=== PATIENT | female | born 1985 | race Caucasian/White ===

== ENCOUNTER 2017-10-19 14:12 | Emergency (ER) | payer OTHER, MEDICAID, SELFPAY ==
[2017-10-19 14:26] VITALS: BP 113/72; PULSE 83; RESP 16; TEMP 36.6; O2SAT 99
--- NOTE | 2017-10-19 14:31 | DI.RAD.S_ITS ---
PROCEDURE: XR HAND LT MIN 3V INDICATIONS: left thumb injury TECHNIQUE: 3 views of the hand(s) acquired. COMPARISON: [facility], CR, FINGER LT, 10/29/2013, 11:50. FINDINGS: Bones: No fractures or dislocations. Carpal bones are normally aligned. No suspicious bony lesions. Small accessory ossicle at the tip of the ulnar styloid process is unchanged. Soft tissues: No suspicious soft tissue calcifications. IMPRESSION: Negative for fracture. No arthritic changes. Dictated by: Christian Malin M.D. on 10/19/2017 at 14:54 Approved by: Christian Malin M.D. on 10/19/2017 at 14:57
[2017-10-19 15:30] VITALS: PULSE 77
--- NOTE | 2017-10-19 15:40 | ED.UPPEXIN ---
HPI - Extremity Injury (Upper) <ROSE Culver - Last Filed: 10/19/17 23:08> General Chief Complaint: Extremity Injury, Upper Stated Complaint: left thumb pain Time Seen by Provider: 10/19/17 15:40 Source: patient Mode of arrival: ambulatory Limitations: no limitations History of Present Illness HPI narrative: Patient presents with chief complaint of left thumb pain. Her dog pulled on her left thumb, causing pain and a pop. She complains of decreased range of motion, swelling and pain isolated to her thumb. She states that her thumb somewhat hyperextended. She denies wrist pain. She states that she does have a previous thumb ligament injury from being a softball catcher. She has not taken any medication by mouth, but has ice the injury. Related Data Home Medications Medication Instructions Recorded Confirmed No Known Home Medications 10/19/17 10/19/17 Allergies Allergy/AdvReac Type Severity Reaction Status Date / Time No Known Drug Allergies Allergy Verified 10/19/17 14:30 Review of Systems <ROSE Culver - Last Filed: 10/19/17 23:08> Review of Systems GENERAL: Denies chills, fatigue, malaise, fever, sweats. HEENT: Denies sinus pain, ear pain, sore throat, difficulty swallowing, dizziness. RESPIRATORY: Denies dyspnea, cough, wheezing, hemoptysis, sputum. CARDIOVASCULAR: Denies chest pain, palpitations, orthopnea, edema, GASTROINTESTINAL: Denies nausea, vomiting, abdominal pain, diarrhea, constipation, melena. : Denies dysuria, frequency, incontinence, hematuria, urinary retention. MUSCULOSKELETAL: See HPI SKIN: Denies rash, skin lesions, or other NEUROLOGIC: Denies weakness, headache, numbness, change in speech, confusion, seizures, incoordination. PSYCHIATRIC: No concerning psychosocial issues. 12 point review of systems is negative except for those stated above Exam <ROSE Culver - Last Filed: 10/19/17 23:08> Narrative Exam Narrative: GENERAL: This is a well-nourished, well-developed patient, in chair hallway HEAD: Atraumatic. Normocephalic. No temporal or scalp tenderness. EYES: Pupils equal round and reactive. Extraocular motions intact. No scleral icterus. No injection or drainage. ENT: Nose without bleeding, purulent drainage or septal hematoma. Throat without erythema, tonsillar hypertrophy or exudate. Uvula midline. Airway patent. NECK: Trachea midline. No JVD or lymphadenopathy. Supple, nontender, no meningeal signs. CARDIOVASCULAR: Regular rate and rhythm without murmurs, gallops, or rubs. RESPIRATORY: Clear to auscultation. Breath sounds equal bilaterally. No wheezes, rales, or rhonchi. GASTROINTESTINAL: Abdomen soft, non-tender, nondistended. No hepato-splenomegaly, or palpable masses. No guarding. EXTREMITIES: Pain to palpation base of left thumb. Range of motion reduced all burt. Capillary refill less than 2 sec the thumb. BACK: Nontender without deformity or crepitance. No flank tenderness. NEURO: AOx3. SKIN: No rash or erythema. No ecchymosis or erythema or wound noted left thumb. Initial Vital Signs Initial Vital Signs: Vital Signs Temperature 98 F 10/19/17 14:26 Pulse Rate 83 10/19/17 14:26 Respiratory Rate 16 10/19/17 14:26 Blood Pressure 113/72 10/19/17 14:26 Pulse Oximetry 99 10/19/17 14:26 <Wilmar Pisano DO - Last Filed: 10/20/17 07:24> Initial Vital Signs Initial Vital Signs: Vital Signs Temperature 98 F 10/19/17 14:26 Pulse Rate 83 10/19/17 14:26 Respiratory Rate 16 10/19/17 14:26 Blood Pressure 113/72 10/19/17 14:26 Pulse Oximetry 99 10/19/17 14:26 Procedures <ROSE Culver - Last Filed: 10/19/17 23:08> Orthopedic Splinting/Casting Injury #1: Upper Extremity Immobilizer: thumb spica (supportive black brace- left ) Additional Comments: PMS intact before and after application Course <ROSE Culver - Last Filed: 10/19/17 23:08> Orders Ordered: Discontinued Medications Ibuprofen (Advil) 800 mg PO NOW ONE Stop: 10/19/17 15:41 Last Admin: 10/19/17 16:41 Dose: 800 mg Vital Signs - 8 hr 10/19/17 15:30 10/19/17 16:51 Pulse Rate 81 Pulse Rate [Left Radial] 77 Respiratory Rate 16 Blood Pressure 112/77 Pulse Oximetry 100 <Wilmar Pisano DO - Last Filed: 10/20/17 07:24> Orders Ordered: Discontinued Medications Ibuprofen (Advil) 800 mg PO NOW ONE Stop: 10/19/17 15:41 Last Admin: 10/19/17 16:41 Dose: 800 mg Vital Signs - 8 hr 10/19/17 15:30 10/19/17 16:51 Pulse Rate 81 Pulse Rate [Left Radial] 77 Respiratory Rate 16 Blood Pressure 112/77 Pulse Oximetry 100 [facility] - Extremity Injury (Upper) <ROSE Culver - Last Filed: 10/19/17 23:08> Imaging Data left hand xray: Radiologist's impression: [address] [address] XRay Report Signed Patient: Rosario Silva MR#: [id number] : 1985 Acct:[id number] Age/Sex: 31 / F Date of Service: 10/19/17 Loc: ED Accession Number: [id number] Procedure: XR hand LT min 3V Ordering Provider: Pamella Oh PROCEDURE: XR HAND LT MIN 3V INDICATIONS: left thumb injury TECHNIQUE: 3 views of the hand(s) acquired. COMPARISON: [facility], ARNULFO, FINGER LT, 10/29/2013, 11:50. FINDINGS: Bones: No fractures or dislocations. Carpal bones are normally aligned. No suspicious bony lesions. Small accessory ossicle at the tip of the ulnar styloid process is unchanged. Soft tissues: No suspicious soft tissue calcifications. IMPRESSION: Negative for fracture. No arthritic changes. Dictated by: Christian Malin M.D. on 10/19/2017 at 14:54 [facility] Narrative Medical decision making narrative: Patient presents with chief complaint of left thumb pain. She had a negative x-ray. She was treated with a dose of ibuprofen as well as supportive brace in the emergency department. Given her history and decreased range of motion and concern for UCL strain. I encouraged rice, [id number] pain medication as needed and follow up with primary care provider. She does have a history of a UCL injury on that side so I did give her the contact information for [facility]. I discussed follow-up with worsening or no improvement. Patient no questions or concerns upon discharge. Discharge Plan Departure Patient Disposition: Home, Self-Care Clinical Impression: Pain of left thumb Discharge Date/Time: 10/19/17 16:53 Interventions: ED Discharge Assessment Last Done: 10/19/17 16:51 Instructions: How To Perform RICE (Rest, Ice, Compress, Elevate), How to Take Care of Your Splint, DI for Ulnar Collateral Ligament Sprain of Thumb Activity Restrictions/Additional Instructions: Your x-ray was negative for an acute fracture. However given her pain and decreased range of motion, I have placed in a splint for comfort. I suggest rest, ice, compression and elevation as well as [id number] pain medication as needed and able. I suggest following up with your primary care provider if worsening or no improvement to the symptoms. You may need further imaging or physical therapy. I also placed a referral to [facility] in case he would like to follow up with them. Prescriptions: No Action No Known Home Medications RF: 0 Referrals: [facility] [Provider Group] Aimee Marsh PA-C [Primary Care Provider] - <Wilmar Pisano DO - Last Filed: 10/20/17 07:24> Cosign ED Attending Natasha Attestation: I was available for consultation during this patient's emergency department encounter
--- NOTE | 2017-10-19 16:18 | ED_ITS ---
HPI - Extremity Injury (Upper) <ROSE Culver - Last Filed: 10/19/17 23:08> General Chief Complaint: Extremity Injury, Upper Stated Complaint: left thumb pain Time Seen by Provider: 10/19/17 15:40 Source: patient Mode of arrival: ambulatory Limitations: no limitations History of Present Illness HPI narrative: Patient presents with chief complaint of left thumb pain. Her dog pulled on her left thumb, causing pain and a pop. She complains of decreased range of motion, swelling and pain isolated to her thumb. She states that her thumb somewhat hyperextended. She denies wrist pain. She states that she does have a previous thumb ligament injury from being a softball catcher. She has not taken any medication by mouth, but has ice the injury. Related Data Home Medications Medication Instructions Recorded Confirmed No Known Home Medications 10/19/17 10/19/17 Allergies Allergy/AdvReac Type Severity Reaction Status Date / Time No Known Drug Allergies Allergy Verified 10/19/17 14:30 Review of Systems <ROSE Culver - Last Filed: 10/19/17 23:08> Review of Systems GENERAL: Denies chills, fatigue, malaise, fever, sweats. HEENT: Denies sinus pain, ear pain, sore throat, difficulty swallowing, dizziness. RESPIRATORY: Denies dyspnea, cough, wheezing, hemoptysis, sputum. CARDIOVASCULAR: Denies chest pain, palpitations, orthopnea, edema, GASTROINTESTINAL: Denies nausea, vomiting, abdominal pain, diarrhea, constipation, melena. : Denies dysuria, frequency, incontinence, hematuria, urinary retention. MUSCULOSKELETAL: See HPI SKIN: Denies rash, skin lesions, or other NEUROLOGIC: Denies weakness, headache, numbness, change in speech, confusion, seizures, incoordination. PSYCHIATRIC: No concerning psychosocial issues. 12 point review of systems is negative except for those stated above Exam <ROSE Culver - Last Filed: 10/19/17 23:08> Narrative Exam Narrative: GENERAL: This is a well-nourished, well-developed patient, in chair hallway HEAD: Atraumatic. Normocephalic. No temporal or scalp tenderness. EYES: Pupils equal round and reactive. Extraocular motions intact. No scleral icterus. No injection or drainage. ENT: Nose without bleeding, purulent drainage or septal hematoma. Throat without erythema, tonsillar hypertrophy or exudate. Uvula midline. Airway patent. NECK: Trachea midline. No JVD or lymphadenopathy. Supple, nontender, no meningeal signs. CARDIOVASCULAR: Regular rate and rhythm without murmurs, gallops, or rubs. RESPIRATORY: Clear to auscultation. Breath sounds equal bilaterally. No wheezes , rales, or rhonchi. GASTROINTESTINAL: Abdomen soft, non-tender, nondistended. No hepato-splenomegaly , or palpable masses. No guarding. EXTREMITIES: Pain to palpation base of left thumb. Range of motion reduced all burt. Capillary refill less than 2 sec the thumb. BACK: Nontender without deformity or crepitance. No flank tenderness. NEURO: AOx3. SKIN: No rash or erythema. No ecchymosis or erythema or wound noted left thumb. Initial Vital Signs Initial Vital Signs: Vital Signs Temperature 98 F 10/19/17 14:26 Pulse Rate 83 10/19/17 14:26 Respiratory Rate 16 10/19/17 14:26 Blood Pressure 113/72 10/19/17 14:26 Pulse Oximetry 99 10/19/17 14:26 <Wilmar Pisano DO - Last Filed: 10/20/17 07:24> Initial Vital Signs Initial Vital Signs: Vital Signs Temperature 98 F 10/19/17 14:26 Pulse Rate 83 10/19/17 14:26 Respiratory Rate 16 10/19/17 14:26 Blood Pressure 113/72 10/19/17 14:26 Pulse Oximetry 99 10/19/17 14:26 Procedures <ROSE Culver - Last Filed: 10/19/17 23:08> Orthopedic Splinting/Casting Injury #1: Upper Extremity Immobilizer: thumb spica (supportive black brace- left ) Additional Comments: PMS intact before and after application Course <ROSE Culver - Last Filed: 10/19/17 23:08> Orders Ordered: Discontinued Medications Ibuprofen (Advil) 800 mg PO NOW ONE Stop: 10/19/17 15:41 Last Admin: 10/19/17 16:41 Dose: 800 mg Vital Signs - 8 hr 10/19/17 15:30 10/19/17 16:51 Pulse Rate 81 Pulse Rate [Left Radial] 77 Respiratory Rate 16 Blood Pressure 112/77 Pulse Oximetry 100 <Wilmar Pisano DO - Last Filed: 10/20/17 07:24> Orders Ordered: Discontinued Medications Ibuprofen (Advil) 800 mg PO NOW ONE Stop: 10/19/17 15:41 Last Admin: 10/19/17 16:41 Dose: 800 mg Vital Signs - 8 hr 10/19/17 15:30 10/19/17 16:51 Pulse Rate 81 Pulse Rate [Left Radial] 77 Respiratory Rate 16 Blood Pressure 112/77 Pulse Oximetry 100 [facility] - Extremity Injury (Upper) <ROSE Culver - Last Filed: 10/19/17 23:08> Imaging Data left hand xray: Radiologist's impression: [address] [address] XRay Report Signed Patient: Rosario Silva MR#: [id number] : 1985 Acct:[id number] Age/Sex: 31 / F Date of Service: 10/19/17 Loc: ED Accession Number: [id number] Procedure: XR hand LT min 3V Ordering Provider: Pamella Oh PROCEDURE: XR HAND LT MIN 3V INDICATIONS: left thumb injury TECHNIQUE: 3 views of the hand(s) acquired. COMPARISON: [facility], ARNULFO, FINGER LT, 10/29/2013, 11:50. FINDINGS: Bones: No fractures or dislocations. Carpal bones are normally aligned. No suspicious bony lesions. Small accessory ossicle at the tip of the ulnar styloid process is unchanged. Soft tissues: No suspicious soft tissue calcifications. IMPRESSION: Negative for fracture. No arthritic changes. Dictated by: Christian Malin M.D. on 10/19/2017 at 14:54 [facility] Narrative Medical decision making narrative: Patient presents with chief complaint of left thumb pain. She had a negative x-ray. She was treated with a dose of ibuprofen as well as supportive brace in the emergency department. Given her history and decreased range of motion and concern for UCL strain. I encouraged rice, [id number] pain medication as needed and follow up with primary care provider. She does have a history of a UCL injury on that side so I did give her the contact information for [facility]. I discussed follow-up with worsening or no improvement. Patient no questions or concerns upon discharge. Discharge Plan Departure Patient Disposition: Home, Self-Care Clinical Impression: Pain of left thumb Discharge Date/Time: 10/19/17 16:53 Interventions: ED Discharge Assessment Last Done: 10/19/17 16:51 Instructions: How To Perform RICE (Rest, Ice, Compress, Elevate), How to Take Care of Your Splint, DI for Ulnar Collateral Ligament Sprain of Thumb Activity Restrictions/Additional Instructions: Your x-ray was negative for an acute fracture. However given her pain and decreased range of motion, I have placed in a splint for comfort. I suggest rest, ice, compression and elevation as well as seje-mcb-xtozjrt pain medication as needed and able. I suggest following up with your primary care provider if worsening or no improvement to the symptoms. You may need further imaging or physical therapy. I also placed a referral to [facility] in case he would like to follow up with them. Prescriptions: No Action No Known Home Medications RF: 0 Referrals: [facility] [Provider Group] Aimee Marsh PA-C [Primary Care Provider] - <Wilmar Pisano DO - Last Filed: 10/20/17 07:24> Cosign ED Attending Natasha Attestation: I was available for consultation during this patient's emergency department encounter
[2017-10-19] MEDS: IBUPROFEN 400 MG TABLET 800 MG PO (16:41)
[2017-10-19 16:51] VITALS: BP 112/77; PULSE 81; RESP 16; O2SAT 100
== END 2017-10-19 16:53 | disposition home or self-care (01) ==
PROVIDERS: Emergency Provider Nurse Practitioner Family; Family Provider Physician Assistant; PCP Physician Assistant
DX: M79.645 Pain in left finger(s) (principal); W23.0XXA Caught, crushed, jammed, or pinched between moving objects, initial encounter
CPT/HCPCS: 29260; 73130; 99282; 99283

== ENCOUNTER → 2019-10-12 09:23 | Outpatient (CLI) | payer OTHER, MEDICAID, SELFPAY ==
[2019-10-12 10:22] LABS: Add Manual Diff / Slide Review NO; Basophils Absolute Auto 0 /uL (0-100); Basophils Percent Auto 0.7 % (0-2); Eosinophils Absolute Auto 100 /uL (0-450); Eosinophils Percent Auto 2.2 % (2-4); Hematocrit 37.1 % (36-46); Hemoglobin 12.6 g/dL (12.0-16.0); Lymphocytes Absolute Auto 1400 /uL (1100-4500); Mean Corpuscular HGB Conc 33.9 % (30-36); Mean Corpuscular Hemoglobin 29.9 PG (26-34); Mean Corpuscular Volume 88.3 fL (80-100); Monocytes Absolute Auto 500 /uL (0-900); Monocytes Percent Auto 7.6 % (3-14); Neutrophils Absolute Auto 4300 /uL (1500-7000); Neutrophils Percent Auto 67.5 % (50-75); Platelet Count 236 X10^3/uL (150-400); Red Cell Distribution Width 12.3 % (11.6-14.8); White Blood Cell Count 6.4 X10^3/uL (4.5-11.0)
[2019-10-12 10:38] LABS: Alanine Aminotransferase 51 IU/L (<35); Albumin 4.3 g/dL (3.5-5.0); Albumin Globulin Ratio 1.5 (1.0-2.8); Alkaline Phosphatase 80 U/L (38-126); Aspartate Aminotransferase 37 IU/L (14-36); BUN Creatinine Ratio 21.8 (6-22); Bilirubin Total 0.5 mg/dL (0.2-1.3); Blood Urea Nitrogen 17 mg/dL (7-17); Calcium 9.4 mg/dL (8.4-10.2); Carbon Dioxide 28 mmol/L (22-32); Chloride 104 mmol/L (98-107); Cholesterol 189 mg/dL (140-199); Estimated Glomerular Filt Rate > 60.0 mL/min (>60); Globulin 2.9 g/dL (1.7-4.1); Glucose 89 mg/dL (70-100); HDL Cholesterol 54 mg/dL (40-60); HEMOLYSIS < 15 (0-50); LDL Cholesterol Calculated 105 mg/dL (<100); Potassium 4.5 mmol/L (3.4-5.1); Sodium 139 mmol/L (137-145); Total Protein 7.2 g/dL (6.3-8.2); Triglycerides 150 mg/dL (35-150)
[2019-10-12 10:50] LABS: Free T3, Triiodothyronine Free 3.34 pg/mL (2.77-5.27); Free T4, Direct Thyroxine 1.14 ng/dL (0.78-2.19)
[2019-10-12 11:03] LABS: Thyroid Stimulating Hormone 1.17 uIU/mL (0.47-4.68)
== END ==
PROVIDERS: Family Provider Physician Assistant; PCP Nurse Practitioner; Referring Provider Nurse Practitioner; Visit Provider Nurse Practitioner
DX: Z00.00 Encounter for general adult medical examination without abnormal findings (principal); E66.01 Morbid (severe) obesity due to excess calories; F32.9 Major depressive disorder, single episode, unspecified; F41.9 Anxiety disorder, unspecified; R63.4 Abnormal weight loss
CPT/HCPCS: 36415; 80053; 80061; 83036; 84439; 84443; 84481; 85025

== ENCOUNTER → 2019-10-22 13:48 | Outpatient (CLI) | payer OTHER, MEDICAID, SELFPAY ==
--- NOTE | 2019-10-22 13:50 | DI.US.S_ITS ---
PROCEDURE: US ABDOMEN LIMITED INDICATIONS: ELEV LFTS TECHNIQUE: Real-time scanning was performed of the abdominal and retroperitoneal organs, with image documentation. COMPARISON: [facility], RG, CT THORAX W/CONTRAST, 04/25/2004, 17:34. [facility], US, ABDOMEN COMPLETE, 06/20/2013, 5:57. FINDINGS: Liver is normal in size and demonstrates diffuse increased echotexture. There is a 1.0 x 1.2 x 1.1 cm echogenic nodule in the right hepatic lobe, most likely a hepatic hemangioma. No gallstones. Gallbladder wall thickness is at the upper limits of normal. No pericholecystic fluid or sonographic Souza's sign. Intrahepatic bile ducts are non-dilated. Extrahepatic bile duct caliber is normal measuring 3 mm. Visualized portions of the pancreas are sonographically normal. Miscellaneous: No free abdominal fluid. IMPRESSION: 1. Increased hepatic echotexture may be secondary to fatty infiltration or hepatocellular disease. 2. A 1.0 x 1.2 x 1.1 cm echogenic nodule in the right hepatic lobe, most likely a hemangioma. In this patient with abnormal liver enzymes, a follow-up ultrasound is suggested in 3-6 months. Alternatively, CT raising liver protocol may be obtained. 3. Normal gallbladder and pancreas as visualized. Dictated by: Sheyla Chance M.D. on 10/22/2019 at 18:16 Approved by: Sheyla Chance M.D. on 10/22/2019 at 18:20
== END ==
PROVIDERS: Family Provider Physician Assistant; PCP Nurse Practitioner; Referring Provider Nurse Practitioner; Visit Provider Nurse Practitioner
DX: R79.89 Other specified abnormal findings of blood chemistry (principal); K76.9 Liver disease, unspecified
CPT/HCPCS: 76705

== ENCOUNTER → 2019-11-23 09:36 | Outpatient (CLI) | payer OTHER, MEDICAID, SELFPAY ==
[2019-11-23 09:47] LABS: RBC Urine None Seen (0-5/HPF)
[2019-11-23 11:02] LABS: Add Manual Diff / Slide Review NO; Basophils Absolute Auto 0 /uL (0-100); Basophils Percent Auto 0.6 % (0-2); Eosinophils Absolute Auto 100 /uL (0-450); Eosinophils Percent Auto 2.1 % (2-4); Hematocrit 37.1 % (36-46); Hemoglobin 12.7 g/dL (12.0-16.0); Lymphocytes Absolute Auto 1400 /uL (1100-4500); Lymphocytes Percent Auto 23.4 % (25-40); Mean Corpuscular HGB Conc 34.2 % (30-36); Mean Corpuscular Hemoglobin 29.9 PG (26-34); Mean Corpuscular Volume 87.6 fL (80-100); Monocytes Absolute Auto 400 /uL (0-900); Monocytes Percent Auto 7.3 % (3-14); Neutrophils Absolute Auto 4100 /uL (1500-7000); Neutrophils Percent Auto 66.6 % (50-75); Platelet Count 230 X10^3/uL (150-400); Red Blood Cell Count 4.24 X10^6/uL (4.0-5.2); Red Cell Distribution Width 12.1 % (11.6-14.8); White Blood Cell Count 6.1 X10^3/uL (4.5-11.0)
[2019-11-23 11:23] LABS: Appearance Urine UA CLEAR; Bilirubin Urine UA NEGATIVE (NEGATIVE); Color Urine UA YELLOW; Glucose Urine UA NEGATIVE (Negative); Ketones Urine UA 2+ (NEGATIVE); Leukocyte Esterase Urine UA NEGATIVE (NEGATIVE); Nitrite Urine UA NEGATIVE (Negative); Occult Blood Urine UA NEGATIVE (Negative); Protein Urine UA NEGATIVE (Negative); Specific Gravity Urine UA 1.025 (1.000-1.035); Urobilinogen Urine UA 0.2 E.U./dL (0.2)
[2019-11-23 11:27] LABS: pH Urine UA 5.5 (4.5-8.0)
[2019-11-23 11:29] LABS: Alanine Aminotransferase 27 IU/L (<35); Albumin 4.5 g/dL (3.5-5.0); Albumin Globulin Ratio 1.6 (1.0-2.8); Alkaline Phosphatase 69 U/L (38-126); Aspartate Aminotransferase 37 IU/L (14-36); BUN Creatinine Ratio 20.9 (6-22); Bilirubin Total 0.6 mg/dL (0.2-1.3); Bilirubin Unconjugated 0.4 mg/dL (0.0-1.1); Blood Urea Nitrogen 19 mg/dL (7-17); Calcium 9.5 mg/dL (8.4-10.2); Carbon Dioxide 27 mmol/L (22-32); Chloride 102 mmol/L (98-107); Estimated Glomerular Filt Rate > 60.0 mL/min (>60); Globulin 2.9 g/dL (1.7-4.1); Glucose 70 mg/dL (70-100); HEMOLYSIS < 15 (0-50); Phosphorous 3.5 mg/dL (2.5-4.5); Potassium 4.4 mmol/L (3.4-5.1); Sodium 136 mmol/L (137-145); Total Protein 7.4 g/dL (6.3-8.2)
[2019-11-23 11:33] LABS: Amorphous Sediment Urine 1+; Bacteria Urine Few (2-10); Culture Indicated Urine Specimen Cultured; Mucus Urine 2+ (Negative); Squamous Epithelial Cell Urine 1-5 /HPF (0-5/HPF); WBC Urine 1-5/HPF (0-5/HPF)
== END ==
PROVIDERS: Family Provider Physician Assistant; PCP Nurse Practitioner; Referring Provider Nurse Practitioner; Visit Provider Nurse Practitioner
DX: Z01.818 Encounter for other preprocedural examination (principal); R79.89 Other specified abnormal findings of blood chemistry
CPT/HCPCS: 36415; 80053; 80076; 81001; 84100; 85025; 87086

== ENCOUNTER → 2019-12-01 13:57 | Outpatient (CLI) | payer OTHER, MEDICAID, SELFPAY ==
[2019-12-02 13:48] LABS: COVID19 Sendout Not Detected (Not Detect)
== END ==
PROVIDERS: Family Provider Physician Assistant; PCP Nurse Practitioner; Visit Provider Physician Assistant
DX: Z11.59 Encounter for screening for other viral diseases (principal)
CPT/HCPCS: 87635

== ENCOUNTER → 2020-05-29 08:03 | Outpatient (CLI) | payer OTHER, MEDICAID, SELFPAY ==
[2020-05-29 08:44] LABS: Add Manual Diff / Slide Review NO; Basophils Absolute Auto 0 /uL (0-100); Basophils Percent Auto 0.8 % (0-2); Eosinophils Absolute Auto 100 /uL (0-450); Eosinophils Percent Auto 2.5 % (2-4); Hematocrit 34.5 % (36-46); Hemoglobin 11.5 g/dL (12.0-16.0); Lymphocytes Absolute Auto 1200 /uL (1100-4500); Lymphocytes Percent Auto 28.7 % (25-40); Mean Corpuscular HGB Conc 33.4 % (30-36); Mean Corpuscular Hemoglobin 29.7 PG (26-34); Mean Corpuscular Volume 88.9 fL (80-100); Monocytes Absolute Auto 400 /uL (0-900); Monocytes Percent Auto 10.1 % (3-14); Neutrophils Absolute Auto 2400 /uL (1500-7000); Neutrophils Percent Auto 57.9 % (50-75); Platelet Count 180 X10^3/uL (150-400); Red Blood Cell Count 3.87 X10^6/uL (4.0-5.2); Red Cell Distribution Width 12.9 % (11.6-14.8); White Blood Cell Count 4.2 X10^3/uL (4.5-11.0)
[2020-05-29 08:56] LABS: Hemoglobin A1C% w Est Avg Glu 4.8 % (4.0-6.0)
[2020-05-29 09:26] LABS: Alanine Aminotransferase 26 IU/L (<35); Albumin 4.1 g/dL (3.5-5.0); Albumin Globulin Ratio 1.6 (1.0-2.8); Alkaline Phosphatase 54 U/L (38-126); Aspartate Aminotransferase 28 IU/L (14-36); BUN Creatinine Ratio 21.5 (6-22); Bilirubin Total 0.3 mg/dL (0.2-1.3); Blood Urea Nitrogen 14 mg/dL (7-17); Calcium 9.4 mg/dL (8.4-10.2); Carbon Dioxide 31 mmol/L (22-32); Chloride 101 mmol/L (98-107); Cholesterol 160 mg/dL (140-199); Estimated Glomerular Filt Rate > 60.0 mL/min (>60); Globulin 2.5 g/dL (1.7-4.1); Glucose 84 mg/dL (70-100); HDL Cholesterol 60 mg/dL (40-60); HEMOLYSIS < 15 (0-50); LDL Cholesterol Calculated 86 mg/dL (<100); Sodium 137 mmol/L (137-145); Total Protein 6.6 g/dL (6.3-8.2); Triglycerides 69 mg/dL (35-150)
[2020-05-29 09:41] LABS: Vitamin D 25 Hydroxy (D3) 38.4 ng/mL (30.0-100.0)
[2020-05-29 09:42] LABS: Free T3, Triiodothyronine Free 3.36 pg/mL (2.77-5.27); Free T4, Direct Thyroxine 1.41 ng/dL (0.78-2.19)
[2020-05-29 10:01] LABS: Ferritin 135 ng/mL (6-137)
[2020-05-29 10:32] LABS: Folate 13.8 ng/mL (2.76-20.0); Vitamin B12 > 1000 pg/mL (239-931)
[2020-05-30 11:10] LABS: Calcium 8.1 mg/dL (8.7-10.2); Parathyroid Hormone, Intact 28 pg/mL (15-65)
[2020-06-01 09:36] LABS: Vitamin B6 36.9 ug/L (2.0-32.8)
== END ==
PROVIDERS: Family Provider Physician Assistant; PCP Nurse Practitioner; Referring Provider Nurse Practitioner; Visit Provider Nurse Practitioner
DX: Z00.00 Encounter for general adult medical examination without abnormal findings (principal); F32.9 Major depressive disorder, single episode, unspecified; F41.9 Anxiety disorder, unspecified; R79.89 Other specified abnormal findings of blood chemistry; Z98.84 Bariatric surgery status
CPT/HCPCS: 36415; 80053; 80061; 82306; 82310; 82607; 82728; 82746; 83036; 83970; 84207; 84439; 84443; 84481; 85025

== ENCOUNTER → 2020-10-31 11:18 | Outpatient (CLI) | payer OTHER, MEDICAID, SELFPAY ==
[2020-10-31 12:07] LABS: COVID19 -Nasal RAPID Negative (Negative)
== END ==
PROVIDERS: Family Provider Physician Assistant; PCP Nurse Practitioner; Referring Provider Physician Assistant; Visit Provider Physician Assistant
DX: Z20.822 Contact with and (suspected) exposure to COVID-19 (principal)
CPT/HCPCS: 87635

== ENCOUNTER → 2020-11-04 10:10 | Outpatient (CLI) | payer OTHER, MEDICAID, SELFPAY ==
[2020-11-04 11:03] LABS: COVID19 -Nasal RAPID Negative (Negative)
== END ==
PROVIDERS: Family Provider Physician Assistant; PCP Nurse Practitioner; Visit Provider Student in an Organized Health Care Education/Training Program
DX: J02.9 Acute pharyngitis, unspecified (principal); R05 Cough
CPT/HCPCS: 87635

== ENCOUNTER → 2020-12-23 13:42 | Outpatient (CLI) | payer OTHER, MEDICAID, SELFPAY ==
[2020-12-23 14:41] LABS: Add Manual Diff / Slide Review NO; Basophils Absolute Auto 0 /uL (0-100); Basophils Percent Auto 0.7 % (0-2); Eosinophils Absolute Auto 100 /uL (0-450); Eosinophils Percent Auto 1.5 % (2-4); Hematocrit 37.7 % (36-46); Hemoglobin 12.5 g/dL (12.0-16.0); Lymphocytes Absolute Auto 1500 /uL (1100-4500); Lymphocytes Percent Auto 21.1 % (25-40); Mean Corpuscular HGB Conc 33.2 % (30-36); Mean Corpuscular Hemoglobin 29.7 PG (26-34); Mean Corpuscular Volume 89.6 fL (80-100); Monocytes Absolute Auto 500 /uL (0-900); Monocytes Percent Auto 7.4 % (3-14); Neutrophils Absolute Auto 5000 /uL (1500-7000); Neutrophils Percent Auto 69.3 % (50-75); Platelet Count 219 X10^3/uL (150-400); Red Cell Distribution Width 12.7 % (11.6-14.8); White Blood Cell Count 7.2 X10^3/uL (4.5-11.0)
[2020-12-23 16:23] LABS: Urine N gonorrhoeae NOT DETECTED
[2020-12-23 16:25] LABS: Urine Chlamydia NOT DETECTED
[2020-12-24 06:08] LABS: RPR Screen Non Reactive (Non Reactive)
[2020-12-24 13:14] LABS: HSV 2 IGG AB < 0.91 index (0.00-0.90); HSV1IGG < 0.91 index (0.00-0.90)
[2020-12-24 16:53] LABS: HIV 1 & 2 Ab/Ag 4th Gen Combo NEGATIVE (NEGATIVE); Hep C Virus Ab w/Reflex Quant NEGATIVE s/c (NEGATIVE); Hepatitis B Surface Antigen NEGATIVE s/c (NEGATIVE)
[2020-12-24 20:07] LABS: HSV I/II IgM <0.91 Ratio (0.00-0.90)
== END ==
PROVIDERS: Family Provider Physician Assistant; PCP Nurse Practitioner; Referring Provider Nurse Practitioner; Visit Provider Nurse Practitioner
DX: Z11.3 Encounter for screening for infections with a predominantly sexual mode of transmission (principal); D64.9 Anemia, unspecified
CPT/HCPCS: 36415; 85025; 86592; 86694; 86695; 86696; 86803; 87340; 87389; 87491; 87591

== ENCOUNTER → 2021-04-22 16:10 | Outpatient (CLI) | payer OTHER, MEDICAID, SELFPAY ==
--- NOTE | 2021-04-22 16:12 | DI.RAD.S_ITS ---
PROCEDURE: XR CHEST 2V INDICATIONS: chest pain TECHNIQUE: 2 views of the chest were acquired. COMPARISON: [facility], , CHEST 2 VIEW, 08/13/2006, 19:13. FINDINGS: Surgical changes and devices: None. Lungs and pleura: Lungs are clear. No pleural effusions or pneumothorax. Mediastinum: Mediastinal contours are normal. Heart size is normal. Bones and chest wall: No suspicious bony abnormalities. Soft tissues appear unremarkable. IMPRESSION: No acute process. Dictated by: Natalia Flannery M.D. on 04/22/2021 at 17:02 Approved by: Natalia Flannery M.D. on 04/22/2021 at 17:02
== END ==
PROVIDERS: Family Provider Physician Assistant; PCP Nurse Practitioner; Referring Provider Nurse Practitioner; Visit Provider Nurse Practitioner
DX: R07.9 Chest pain, unspecified (principal)
CPT/HCPCS: 71046; 93005